=== PATIENT | female | born 1995 | race African-American/Black ===

== ENCOUNTER 2018-04-29 09:51 | Emergency (ER) | payer MEDICAID ==
[2018-04-29] MEDS ORDERED: Famotidine/PF 20 mg/2ml Vial ONE (10:13)
== END 2018-04-29 11:29 | disposition home or self-care (01) ==
LOC: ERS 09:51
DX: T78.40XA Allergy, unspecified, initial encounter (principal); Z79.84 Long term (current) use of oral hypoglycemic drugs; Z79.82 Long term (current) use of aspirin; Z79.899 Other long term (current) drug therapy
CPT/HCPCS: 96374; S0028